=== PATIENT | female | born 1985 | race Caucasian/White ===

== ENCOUNTER 2020-08-03 11:07 | Emergency (ER) | payer OTHER ==
[~2020-08-03] VITALS: Ht 170.2 cm; Wt 121.1 kg
[~2020-08-03 11:07] MED LIST: AMOXICILLIN875 MG PO; VITAFOL-OB+DHA1 EACH PO
[2020-08-03] MEDS ORDERED: HYDROCODON-ACE1 EA11 PO ×2 (13:20)
[2020-08-03] MEDS ORDERED: ONDANSETRON ODT8 MG PO ×2 (13:20)
[2020-08-03] MEDS ORDERED: CRUTCH1 EACH MISC ×2 (13:21)
== END 2020-08-03 13:30 | disposition home or self-care (01) ==
LOC: ED 11:07
DX: S82.032A Displaced transverse fracture of left patella, initial encounter for closed fracture (principal); W01.0XXA Fall on same level from slipping, tripping and stumbling without subsequent striking against object, initial encounter
CPT/HCPCS: 73560; 96374; 96375; 99283-25; J1170; J1885; J2405

== ENCOUNTER 2020-08-05 07:24 | Day surgery (SDC) | payer OTHER ==
[~2020-08-05] VITALS: Ht 170.2 cm; Wt 121.0 kg
[~2020-08-05 07:24] MED LIST changes: +CRUTCH1 EACH MISC; +HYDROCODON-ACE1 EA11 PO; +ONDANSETRON ODT8 MG PO
[2020-08-05] MEDS ORDERED: HYDROCODON-ACE1 EA11 PO ×2 (11:14)
--- NOTE | 2020-08-05 11:53 | NUR ---
08/05/20 1153 Donna Shah 1114 PT ARRIVED IN PACU NON RESPONSIVE TO NOXIOUS STIMULI. 1125 PT REACTIVE. CRYO CUFF PLACED ON L KNEE. 1130 C/O NAUSEA AND L KNEE PAIN 10/10. 1138 COOL CLOTH TO FOREHEAD. ZOFRAN 4MG GIVEN IVP. 1139 VERSED 1MG IV GIVEN TO HELP PT RELAX. 1141 FENTANYL 25MCG GIVEN IVP FOR 10/10 L KNEE PAIN. 1147 PAIN DOWN TO 9/10. FENTANYL 25MCG GIVEN IVP. C/O FEELING COLD. WARM AIR ON PT. 1153 RESTING. REU.
--- NOTE | 2020-08-05 12:32 | NUR ---
VERY DROWSY STILL RATES PAIN 7/10. DOSES WHEN NOT DISTURBED. S O AT BEDSIDE.
--- NOTE | 2020-08-05 12:49 | NUR ---
CRACKERS EATEN PAIN MEDICINE GIVEN.RATES PAIN 10/01.
--- NOTE | 2020-08-05 14:38 | NUR ---
has voided per [facility] large amt. instructed on cryocuff. states she helped her dad with his so knows how to operate. getting dressed to go home.
--- NOTE | 2020-08-05 14:39 | NUR ---
gave post op phone number for ortho to call if any problems.
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
--- NOTE | 2020-08-05 15:33 | NUR ---
ASSISTED PATIENT INTO MINI VAN, DID NOT FOLLOW DIRECTION WELL. ENCOURAGED PATIENT TO NOT BEAR ALL OF HER WEIGHT ON SURGICAL SIDE GETING TO VEHICLE. PATIENT IGNORED NURSE AND WITH BRACE LOCKED PATIENT THEN WENT TO HER RIGHT KNEE ATTEMPTING TO SIT IN BACK OF VAN TO REST LEG OUTWARD TO REST ON SEAT. PATIENT WITH SISTER AND , WHO REASSURED WOULD BE ABLE TO HELP PATIENT WITH CRUTCHES GET INTO HOUSE WHEN THEY GOT HOME.
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
== END 2020-08-05 14:50 | disposition home or self-care (01) ==
LOC: DS 07:24
PROVIDERS: ATTEND Specialist
PROC: 0QSF04Z Reposition Left Patella with Internal Fixation Device, Open Approach (ICD-10-PCS; principal; 2020-08-05 11:00)
DX: S82.002A Unspecified fracture of left patella, initial encounter for closed fracture (principal); G89.18 Other acute postprocedural pain; W01.0XXA Fall on same level from slipping, tripping and stumbling without subsequent striking against object, initial encounter; Y92.219 Unspecified school as the place of occurrence of the external cause
CPT/HCPCS: 01392; 64445; 64447; 73560; 76942; 84703; A9270; C1713; J0690; J1100; J1885; J2001; J2250; J2405; J2704; J2795; J3010; J7121